=== PATIENT | female | born 1970 | race Caucasian/White ===

== ENCOUNTER → 2016-07-22 | Outpatient (CLI) | payer OTHER ==
[~2016-07-22] MED LIST: MINO100C22; SUMA20SP
[2016-07-22 14:40] LABS: BASO % 0.6 %; BASO ABS # 0.03 K/uL (0-0.2); COMPLETE YES; EOS % 4.2 %; HEMATOCRIT 37.6 % (37-47); LYMPH % 34.6 %; LYMPH ABS # 1.75 K/uL (1.2-3.4); MEAN CELL VOLUME 90.6 fL (80-100); MEAN CORPUSCULAR HEMOGLOBIN 31.3 pg (25-34); MEAN CORPUSCULAR HGB CONC 34.6 g/dl (32-36); MEAN PLATELET VOLUME 9.6 fL (7.4-10.4); MONO % 5.7 %; NEUT % 54.9 %; PLATELET COUNT 279 K/uL (130-400); RED BLOOD COUNT 4.15 M/uL (4.2-5.4); WHITE BLOOD COUNT 5.06 K/uL (4.8-10.8)
[2016-07-22 15:08] LABS: ALB/GLOB RATIO 1.3 (0.9-2); ALT/SGPT 32 U/L (12-78); AST/SGOT 17 U/L (15-37); BLOOD UREA NITROGEN 8 mg/dl (7-18); BUN/CREATININE RATIO 12.4 (10-20); CALCIUM 8.4 mg/dl (8.5-10.1); CARBON DIOXIDE 24 mmol/L (21-32); CHLORIDE 101 mmol/L (98-107); CHOLESTEROL 201 mg/dl (0-200); CHOLESTEROL/HDL RATIO 3.1; CREATININE 0.66 mg/dl (0.60-1.20); GLUCOSE 90 mg/dl (70-99); HDL CHOLESTEROL 64 mg/dl; LDL CHOLESTEROL CALCULATED 104 mg/dl; POTASSIUM 3.6 mmol/L (3.5-5.1); SODIUM 133 mmol/L (136-145); TRIGLYCERIDES 164 mg/dl (0-150); VERY LOW DENSITY LIPOPROT CALC 33 mg/dl
[2016-07-22 15:16] LABS: ALKALINE PHOSPHATASE 74 U/L (45-117); FERRITIN 8.4 ng/ml (8.0-388.0); THYROID STIMULATING HORMONE 0.462 uIu/ml (0.300-4.500); TOTAL IRON BINDING CAPACITY 421 mcg/dl (250-450)
[2016-07-26 15:28] LABS: GLIADIN DEAMIDATED IgA AB 4 UNITS (<20); GLIADIN DEAMIDATED IgG AB 19 UNITS (<20)
[2016-07-27 05:05] LABS: 18KDIGG BAND NONREACTIVE (NONREACTIVE); 23KDIGG BAND NONREACTIVE (NONREACTIVE); 23KDIGM BAND NONREACTIVE (NONREACTIVE); 28KDIGG BAND NONREACTIVE (NONREACTIVE); 30KDIGG BAND NONREACTIVE (NONREACTIVE); 39KDIGG BAND NONREACTIVE (NONREACTIVE); 39KDIGM BAND NONREACTIVE (NONREACTIVE); 41KDIGG BAND NONREACTIVE (NONREACTIVE); 41KDIGM BAND NONREACTIVE (NONREACTIVE); 45KDIGG BAND NONREACTIVE (NONREACTIVE); 58KDIGG BAND NONREACTIVE (NONREACTIVE); 66KDIGG BAND NONREACTIVE (NONREACTIVE); 93KDIGG BAND REACTIVE (NONREACTIVE)
== END | disposition home or self-care (01) ==
LOC: C.LAB 13:48
PROVIDERS: ATTEND Family Medicine
DX: R53.83 Other fatigue (principal); M25.50 Pain in unspecified joint

== ENCOUNTER → 2017-08-11 | Outpatient (CLI) | payer OTHER ==
[2017-08-11 14:02] LABS: BASO % 0.7 %; BASO ABS # 0.03 K/uL (0-0.2); EOS % 2.5 %; HEMATOCRIT 36.9 % (37-47); IG# 0.01 K/uL (0.00-0.02); LYMPH % 36.9 %; MEAN CELL VOLUME 88.5 fL (80-100); MEAN CORPUSCULAR HEMOGLOBIN 31.2 pg (25-34); MEAN CORPUSCULAR HGB CONC 35.2 g/dl (32-36); MEAN PLATELET VOLUME 9.6 fL (7.4-10.4); MONO % 9.1 %; MONO ABS # 0.37 K/uL (0.11-0.59); NEUT % 50.6 %; NEUT ABS # 2.06 K/uL (1.4-6.5); PLATELET COUNT 274 K/uL (130-400); RED CELL DISTRIBUTION WIDTH CV 12.2 % (11.5-14.5); RED CELL DISTRIBUTION WIDTH SD 39.1 fL (36.4-46.3); WHITE BLOOD COUNT 4.07 K/uL (4.8-10.8)
[2017-08-11 14:15] LABS: ALBUMIN 3.8 gm/dl (3.4-5.0); ALT/SGPT 34 U/L (12-78); AST/SGOT 15 U/L (15-37); BLOOD UREA NITROGEN 9 mg/dl (7-18); CALCIUM 9.3 mg/dl (8.5-10.1); CARBON DIOXIDE 25 mmol/L (21-32); CHOLESTEROL 168 mg/dl (0-200); CREATININE 0.75 mg/dl (0.60-1.20); GLUCOSE 100 mg/dl (70-99); POTASSIUM 3.8 mmol/L (3.5-5.1); SODIUM 133 mmol/L (136-145); URIC ACID 2.4 mg/dl (2.6-7.2)
[2017-08-11 14:24] LABS: ALKALINE PHOSPHATASE 72 U/L (45-117); LDL CHOLESTEROL CALCULATED 76 mg/dl; TRANSFERRIN 338 mg/dl (200-360)
[2017-08-12 06:22] LABS: HEMOGLOBIN A1C 5.1 % (4.5-5.6)
== END | disposition home or self-care (01) ==
LOC: C.LAB1850 11:54
PROVIDERS: ATTEND Family Medicine
DX: R73.09 Other abnormal glucose (principal); E55.9 Vitamin D deficiency, unspecified; D51.9 Vitamin B12 deficiency anemia, unspecified; E78.9 Disorder of lipoprotein metabolism, unspecified; R53.83 Other fatigue

== ENCOUNTER → 2017-08-11 | Outpatient (CLI) | payer OTHER | END | disposition home or self-care (01) | LOC: C.PAPS 15:09 | PROVIDERS: ATTEND Obstetrics & Gynecology | DX: Z01.419 Encounter for gynecological examination (general) (routine) without abnormal findings (principal) ==

== ENCOUNTER → 2017-09-28 | Outpatient (CLI) | payer OTHER ==
--- NOTE | 2017-09-28 18:45 | ECHOCARDIOGRAM REPORT ---
*NOTICE TO RECEIVING CONSTITUTION PARTY AGENCY This information is strictly Confidential and protected under [place] law. [place] law prohibits you from making any further disclosure of this information unless further disclosure is expressly permitted by the written consent of the person to whom it pertains or is authorized by law. A general authorization for the release of medical or other information is not sufficient for this purpose. Hospital accepts no responsibility if the information is made available to any other person, INCLUDING THE PATIENT. Interpretation Summary * Name: KYLE VERA Study Date: 09/28/2017 12:42 PM BP: 130/75 mmHg * Patient Location: [facility] HR: 80 * : 1970 (M/d/yyyy) Gender: Female Height: 64 in * Age: 47 yrs Ethnicity: [place] Weight: 140 lb * Ordering Physician: Tom Evans * Referring Physician: Tom Evans * Performed By: Elina Ayala RDCS * * Reason For Study: chest pain * BSA: 1.7 m2 * -- Conclusions -- * 1. Normal left ventricular size and systolic function. EF 60-65%. No regional wall motion abnormalities. No left ventricular hypertrophy. No significant diastolic dysfunction. * 2. No significant valvular abnormalities visualized. * 3. Compared to prior study on 08/01/2007, LV systolic function is similar. Procedure Details * A complete two-dimensional transthoracic echocardiogram was performed (2D, M-mode, Doppler and color flow Doppler). Left Ventricle * Normal left ventricular size and systolic function. EF 60-65%. No regional wall motion abnormalities. No left ventricular hypertrophy. No significant diastolic dysfunction. Right Ventricle * The right ventricle is normal in size and function. * The right ventricular systolic function is normal as assessed by tricuspid annular plane systolic excursion (TAPSE) (normal >1.5 cm). Atria * The left atrial size is normal. * Right atrial size is normal. * There is no evidence of atrial septal defect, but resolution does not allow assessment for a patent foramen ovale. Mitral Valve * The mitral valve leaflets appear normal. There is no evidence of stenosis, fluttering, or prolapse. * There is no mitral regurgitation noted. Tricuspid Valve * The tricuspid valve is not well visualized, but is grossly normal. * There is no tricuspid stenosis. * Significant tricuspid regurgitation is absent. Aortic Valve * The aortic valve is trileaflet. * No hemodynamically significant valvular aortic stenosis. * No aortic regurgitation is present. Pulmonic Valve * The pulmonic valve is not well visualized. * There is no pulmonic valvular stenosis. * Trace pulmonic valvular regurgitation. Great Vessels * The aortic root is normal size. * Aortic arch of normal dimension. Pericardium/Pleural * There is no pericardial effusion. Great Vessels * Normal hepatic venous flow pattern. * Normal inferior vena cava size and collapsability with sniff indicates a normal right atrial pressure of 3 mmHg MMode 2D Measurements and Calculations IVSd 1.0 cm IVSs 1.5 cm LVIDd 4.3 cm LVIDs 2.8 cm LVPWd 1.0 cm LVPWs 1.2 cm IVS/LVPW 10 FS 35.4 % EDV(Teich) 83.9 ml ESV(Teich) 29.2 ml EF(Teich) 65.1 % EDV(cubed) 80.5 ml ESV(cubed) 21.7 ml EF(cubed) 73.1 % % IVS thick 45.5 % % LVPW thick 18.6 % LV mass(C)d 144.1 grams LV mass(C)dI 85.8 grams/m\S\2 LV mass(C)s 116.4 grams LV mass(C)sI 69.2 grams/m\S\2 SV(Teich) 54.6 ml SI(Teich) 32.5 ml/m\S\2 SV(cubed) 58.8 ml SI(cubed) 35.0 ml/m\S\2 Ao root diam 3.2 cm Ao root area 8.0 cm\S\2 LA dimension 2.4 cm LA/Ao 0.75 LVAd ap4 24.9 cm\S\2 LVLd ap4 7.9 cm EDV(MOD-sp4) 65.1 ml EDV(sp4-el) 66.9 ml LVAs ap4 13.4 cm\S\2 LVLs ap4 6.4 cm ESV(MOD-sp4) 24.2 ml ESV(sp4-el) 23.8 ml EF(MOD-sp4) 62.9 % EF(sp4-el) 64.4 % SV(MOD-sp4) 41.0 ml SI(MOD-sp4) 24.4 ml/m\S\2 SV(sp4-el) 43.1 ml SI(sp4-el) 25.6 ml/m\S\2 Doppler Measurements and Calculations MV E max elda 64.4 cm/sec MV A max elda 49.5 cm/sec MV E/A 1.3 MV dec time 0.23 sec Ao V2 max 121.7 cm/sec Ao max PG 5.9 mmHg Ao max PG (full) 1.2 mmHg LV V1 max PG 4.7 mmHg LV V1 max 108.3 cm/sec
== END | disposition home or self-care (01) ==
LOC: C.CPL 12:36
PROVIDERS: ATTEND Family Medicine
DX: R07.9 Chest pain, unspecified (principal); R94.31 Abnormal electrocardiogram [ECG] [EKG]

== ENCOUNTER → 2017-11-30 | Outpatient (CLI) | payer OTHER ==
[2017-11-30 14:50] LABS: BASO % 0.6 %; BASO ABS # 0.03 K/uL (0-0.2); EOS % 2.4 %; EOS ABS # 0.11 K/uL (0-0.5); HEMATOCRIT 37.5 % (37-47); IG# 0.01 K/uL (0.00-0.02); LYMPH % 34.1 %; LYMPH ABS # 1.58 K/uL (1.2-3.4); MEAN CELL VOLUME 91.2 fL (80-100); MEAN CORPUSCULAR HEMOGLOBIN 31.6 pg (25-34); MEAN CORPUSCULAR HGB CONC 34.7 g/dl (32-36); MEAN PLATELET VOLUME 9.8 fL (7.4-10.4); MONO % 7.6 %; MONO ABS # 0.35 K/uL (0.11-0.59); NEUT % 55.1 %; NEUT ABS # 2.55 K/uL (1.4-6.5); PLATELET COUNT 251 K/uL (130-400); RED CELL DISTRIBUTION WIDTH CV 12.6 % (11.5-14.5); RED CELL DISTRIBUTION WIDTH SD 41.7 fL (36.4-46.3); WHITE BLOOD COUNT 4.63 K/uL (4.8-10.8)
[2017-12-04 16:22] LABS: HERPES SIMPLEX AB IGG-2 < 0.90 INDEX (< 0.90)
--- NOTE | 2017-12-15 10:33 | CODING QUERY NO DIAGNOSIS ---
TREATMENT RENDERED WITHOUT A DIAGNOSIS To promote full compliance with coding requirements relating to patient care, physician participation is requested in all cases of inside meter tester uncertainty. Please assist us with providing a diagnosis/symptom for the test(s) below: A diagnosis/symptom was not documented on your Order. A valid diagnosis/symptom is required to bill all insurances. Please remember that we are unable to code a diagnosis of rule out, probable, possible, questionable, or suspected. Tests that require a diagnosis: 11/30/17 * CBC W/ AUTO DIFF DIAGNOSIS: * ERYTHROCYTE SEDIMENTATION RATE DIAGNOSIS: * IMMUNOGLOBULIN G,A,M DIAGNOSIS: * T4 FREE DIAGNOSIS: * TSH DIAGNOSIS: * HERPES SIMPLEX IGG AB 1&2 DIAGNOSIS: * VARICELLA ZOSTER VIRUS IGG DIAGNOSIS: Provider Signature: Date: Thank you Ethel Shields [employer] Information Management Once completed, please kindly fax back to [phone] For questions please call [phone]
== END | disposition home or self-care (01) ==
LOC: C.LAB1850 13:37
PROVIDERS: ATTEND Family Medicine
DX: E03.9 Hypothyroidism, unspecified (principal); B02.9 Zoster without complications